=== PATIENT | male | born 1950 | race Caucasian/White ===

== ENCOUNTER 2017-10-26 06:11 | Inpatient (IN) | payer MEDICARE, OTHER ==
[2017-10-26] MEDS: SODIUM CHLOR 0.9% 1000 ML INJ 1,000 ML IV (06:28)
[2017-10-26] MEDS: DICYCLOMINE HCL 20 MG/2 ML VIAL IM (06:29)
[2017-10-26] MEDS: ONDANSETRON HCL 4 MG/2 ML VIAL IVP (06:29)
[2017-10-26] MEDS ORDERED: SODIUM CHLORIDE 0.9% FLUSH 10 ML FLUSH IV FLUSH ×3 (06:30→09:15)
[2017-10-26 07:04] LABS: AUTOMATED NEUTROPHIL # 6.4 TH/MM3 (1.8-7.7); BASOPHIL % 0.5 % (0.0-2.0); EOSINOPHIL % 0.1 % (0.0-4.0); HEMATOCRIT 46.6 % (39.0-51.0); HEMOGLOBIN 16.3 GM/DL (13.0-17.0); LYMPHOCYTE # 1.1 TH/MM3 (1.0-4.8); MEAN CELL VOLUME 90.9 FL (80.0-100.0); MEAN CORPUSCULAR HEMOGLOBIN 31.8 PG (27.0-34.0); MEAN PLATELET VOLUME 9.2 FL (7.0-11.0); MONOCYTE # 1.2 TH/MM3 (0-0.9); NEUT % 73.4 % (16.0-70.0); PLATELET COUNT 272 TH/MM3 (150-450); RED BLOOD COUNT 5.13 MIL/MM3 (4.50-5.90); RED CELL DISTRIBUTION WIDTH 14.1 % (11.6-17.2); WHITE BLOOD COUNT 8.7 TH/MM3 (4.0-11.0)
[2017-10-26 07:06] LABS: HEMO FLAGS AUTO DIFF
[2017-10-26 07:34] LABS: ALBUMIN 4.1 GM/DL (3.4-5.0); ALKALINE PHOSPHATASE 120 U/L (45-117); ALT (GPT) 30 U/L (12-78); AST (GOT) 15 U/L (15-37); BLOOD UREA NITROGEN 30 MG/DL (7-18); CALCIUM 11.1 MG/DL (8.5-10.1); CREATININE 1.48 MG/DL (0.60-1.30); GLOMERULAR FILTRATION RATE 47 ML/MIN (>89); GLUCOSE,RANDOM 274 MG/DL (74-106); TOTAL BILIRUBIN ADULT 2.2 MG/DL (0.2-1.0); TOTAL PROTEIN 8.7 GM/DL (6.4-8.2)
[2017-10-26 07:35] LABS: ANION GAP 9 MEQ/L (5-15); BICARBONATE 31.2 MEQ/L (21.0-32.0); CHLORIDE 93 MEQ/L (98-107); LIPASE 138 U/L (73-393); POTASSIUM 3.8 MEQ/L (3.5-5.1); SODIUM (NA) 133 MEQ/L (136-145)
[2017-10-26 07:38] LABS: SCAN/DIFF AUTO DIFF CONFIRMED
[2017-10-26] MEDS: SODIUM CHLORIDE 0.9% FLUSH 10 ML FLUSH IV FLUSH ×2 (09:00→20:54)
[2017-10-26] MEDS ORDERED: SENNOSIDES 8.6 MG TAB PO (09:15)
[2017-10-26] MEDS ORDERED: NALOXONE HCL 0.4 MG/ML AMP IV PUSH ×3 (09:15→17:15)
[2017-10-26] MEDS ORDERED: LACTULOSE SYRUP 20 GM/30 ML CUP PO (09:15)
[2017-10-26] MEDS ORDERED: ONDANSETRON HCL 4 MG/2 ML VIAL IVP (09:15)
[2017-10-26] MEDS ORDERED: BISACODYL 10 MG SUPP RECTAL (09:15)
[2017-10-26] MEDS ORDERED: MAGNESIUM HYDROXIDE SUSP 30 ML CUP PO (09:15)
[2017-10-26] MEDS ORDERED: GLUCAGON 1 MG/ML VIAL OTHER (09:15)
[2017-10-26] MEDS ORDERED: DEXTROSE 50% IN WATER 50 ML VIAL(D50) IV PUSH (09:15)
[2017-10-26] MEDS ORDERED: ENALAPRILAT 1.25 MG/ML VIAL IV PUSH (09:30)
[2017-10-26] MEDS ORDERED: ACETAMINOPHEN 325 MG TAB PO (09:30)
[2017-10-26] MEDS: HEPARIN SODIUM - SQ 10,000 UNITS/ML VIAL SQ (10:00)
[2017-10-26] MEDS ORDERED: ACETAMINOPHEN 1000 MG/100 ML 30 ML IV (11:00)
[2017-10-26] MEDS: HYDROmorphone HCL 2 MG TAB PO ×2 (11:22→15:58)
[2017-10-26] MEDS: D5-1/2 NS + KCL 20 MEQ INJ 1,000 ML IV ×2 (11:25→22:54)
[2017-10-26] MEDS: INSULIN ASPART SUPPLEMENTAL SCALE SQ ×3 (11:26→20:54)
[2017-10-26] MEDS: LORazepam 2 MG/ML VIAL IV PUSH (12:47)
[2017-10-26] MEDS: PANTOPRAZOLE SODIUM 40 MG VIAL IV PUSH (12:48)
[2017-10-26] MEDS ORDERED: diphenhydrAMINE HCL 50 MG/ML VIAL IV PUSH (13:00)
[2017-10-26] MEDS ORDERED: DIATRIZOATE MEGLUM/DIATRIZOATE SOD 120 ML BTL (for RAD DIAG) NG (14:23)
[2017-10-26] MEDS: ACETAMINOPHEN 1000 MG/100 ML 30 ML IV (15:59)
[2017-10-26] MEDS ORDERED: HYDROmorphone HCL PF 2 MG/ML VIAL IV PUSH (17:45)
[2017-10-26] MEDS: clonazePAM 1 MG TAB PO (18:05)
[2017-10-26 19:40] LABS: MAGNESIUM 1.7 MG/DL (1.5-2.5)
[2017-10-26] MEDS: DOCUSATE SODIUM 50 MG/SENNA 8.6 MG TAB PO (20:54)
[2017-10-26] MEDS: HYDROmorphone HCL PF 2 MG/ML VIAL IV PUSH (21:36)
[2017-10-26 22:19] LABS: HEMOGLOBIN A1C 7.9 % (4.3-6.0); HEMOGLOBIN A1a 0.9 %; HEMOGLOBIN A1b 1.2 %; HEMOGLOBIN Ao 79.6 %; HEMOGLOBIN F 1.4 %; HEMOGLOBIN LA1C 3.5 %; HEMOGLOBIN P3 5.1 %
[2017-10-26 23:58] LABS: ALBUMIN 3.8 GM/DL (3.4-5.0); ANION GAP 7 MEQ/L (5-15); AST (GOT) 11 U/L (15-37); BICARBONATE 31.2 MEQ/L (21.0-32.0); BLOOD UREA NITROGEN 30 MG/DL (7-18); CALCIUM 10.7 MG/DL (8.5-10.1); CHLORIDE 98 MEQ/L (98-107); CREATININE 1.33 MG/DL (0.60-1.30); GLOMERULAR FILTRATION RATE 54 ML/MIN (>89); GLUCOSE,RANDOM 242 MG/DL (74-106); POTASSIUM 3.9 MEQ/L (3.5-5.1); SODIUM (NA) 136 MEQ/L (136-145)
[2017-10-27] LABS: ALT (GPT) 25 U/L (12-78)
[2017-10-27 00:02] LABS: ALKALINE PHOSPHATASE 107 U/L (45-117); TOTAL BILIRUBIN ADULT 1.5 MG/DL (0.2-1.0)
[2017-10-27 07:24] LABS: AUTOMATED NEUTROPHIL # 6.3 TH/MM3 (1.8-7.7); BASOPHIL # 0.1 TH/MM3 (0-0.2); BASOPHIL % 0.7 % (0.0-2.0); EOSINOPHIL # 0.1 TH/MM3 (0-0.4); EOSINOPHIL % 0.6 % (0.0-4.0); HEMATOCRIT 50.4 % (39.0-51.0); HEMO FLAGS DIFF FINAL; HEMOGLOBIN 17.3 GM/DL (13.0-17.0); LYMPH % 15.5 % (9.0-44.0); LYMPHOCYTE # 1.4 TH/MM3 (1.0-4.8); MEAN CELL VOLUME 92.8 FL (80.0-100.0); MEAN CORPUSCULAR HEMOGLOBIN 31.8 PG (27.0-34.0); MEAN CORPUSCULAR HGB CONC 34.3 % (32.0-36.0); MEAN PLATELET VOLUME 9.1 FL (7.0-11.0); MONO % 13.3 % (0.0-8.0); MONOCYTE # 1.2 TH/MM3 (0-0.9); NEUT % 69.9 % (16.0-70.0); PLATELET COUNT 291 TH/MM3 (150-450); RED BLOOD COUNT 5.44 MIL/MM3 (4.50-5.90); RED CELL DISTRIBUTION WIDTH 14.3 % (11.6-17.2)
[2017-10-27 07:49] LABS: ANION GAP 5 MEQ/L (5-15); BICARBONATE 34.7 MEQ/L (21.0-32.0); BLOOD UREA NITROGEN 30 MG/DL (7-18); CALCIUM 10.9 MG/DL (8.5-10.1); CHLORIDE 96 MEQ/L (98-107); GLUCOSE,RANDOM 241 MG/DL (74-106); POTASSIUM 4.3 MEQ/L (3.5-5.1); SODIUM (NA) 136 MEQ/L (136-145)
[2017-10-27] MEDS: HYDROmorphone HCL PF 2 MG/ML VIAL IV PUSH (08:10)
[2017-10-27 08:29] LABS: CREATININE 1.42 MG/DL (0.60-1.30); GLOMERULAR FILTRATION RATE 50 ML/MIN (>89)
[2017-10-27] MEDS: SODIUM CHLORIDE 0.9% FLUSH 10 ML FLUSH IV FLUSH ×2 (09:00→20:09)
[2017-10-27] MEDS: DOCUSATE SODIUM 50 MG/SENNA 8.6 MG TAB PO ×2 (09:14→20:07)
[2017-10-27] MEDS: LISINOPRIL 20 MG TAB PO (09:14)
[2017-10-27] MEDS: INSULIN ASPART SUPPLEMENTAL SCALE SQ ×4 (09:14→20:07)
[2017-10-27] MEDS: LORazepam 2 MG/ML VIAL IV PUSH ×2 (09:20→23:32)
[2017-10-27] MEDS: SODIUM CHLOR 0.9% 1000 ML INJ 1,000 ML IV ×2 (10:00→17:13)
[2017-10-27] MEDS: HEPARIN SODIUM - SQ 10,000 UNITS/ML VIAL SQ (17:13)
[2017-10-27] MEDS: HYDROmorphone HCL 2 MG TAB PO (20:07)
[2017-10-27] MEDS: clonazePAM 1 MG TAB PO (20:08)
[2017-10-27] MEDS: PANTOPRAZOLE SOD 40 MG DELAYED RELEASE TAB PO (20:15)
[2017-10-28] MEDS: SODIUM CHLOR 0.9% 1000 ML INJ 1,000 ML IV ×2 (02:12→08:58)
[2017-10-28] MEDS: HEPARIN SODIUM - SQ 10,000 UNITS/ML VIAL SQ ×2 (02:13→08:51)
[2017-10-28] MEDS: HYDROmorphone HCL 2 MG TAB PO ×4 (02:15→16:24)
[2017-10-28 07:23] LABS: ANION GAP 9 MEQ/L (5-15); BICARBONATE 28.7 MEQ/L (21.0-32.0); CALCIUM 9.7 MG/DL (8.5-10.1); CHLORIDE 99 MEQ/L (98-107); CREATININE 0.88 MG/DL (0.60-1.30); GLOMERULAR FILTRATION RATE 86 ML/MIN (>89); GLUCOSE,RANDOM 163 MG/DL (74-106); POTASSIUM 3.4 MEQ/L (3.5-5.1); SODIUM (NA) 137 MEQ/L (136-145)
[2017-10-28 07:27] LABS: BLOOD UREA NITROGEN 15 MG/DL (7-18)
[2017-10-28] MEDS: INSULIN ASPART SUPPLEMENTAL SCALE SQ ×2 (08:00→11:23)
[2017-10-28] MEDS: PANTOPRAZOLE SOD 40 MG DELAYED RELEASE TAB PO (08:50)
[2017-10-28] MEDS: clonazePAM 1 MG TAB PO (08:50)
[2017-10-28] MEDS: LISINOPRIL 20 MG TAB PO (08:50)
[2017-10-28] MEDS: DOCUSATE SODIUM 50 MG/SENNA 8.6 MG TAB PO (08:51)
[2017-10-28] MEDS: SODIUM CHLORIDE 0.9% FLUSH 10 ML FLUSH IV FLUSH (08:51)
[2017-10-28] MEDS: POTASSIUM CHLORIDE 10 MEQ CAP PO (11:17)
== END 2017-10-28 16:42 | disposition home or self-care (01) | DRG 392 ==
LOC: NEPE 06:11 → NEDA 08:32 → N06B 10:31
PROC: 0D9670Z Drainage of Stomach with Drainage Device, Via Natural or Artificial Opening (ICD-10-PCS; principal; 2017-10-26)
DX: K59.09 Other constipation (principal); N17.9 Acute kidney failure, unspecified; E87.1 Hypo-osmolality and hyponatremia; I10 Essential (primary) hypertension; E11.9 Type 2 diabetes mellitus without complications; G47.30 Sleep apnea, unspecified; K58.9 Irritable bowel syndrome, unspecified; G89.29 Other chronic pain; M51.37 Other intervertebral disc degeneration, lumbosacral region; G25.81 Restless legs syndrome; K21.9 Gastro-esophageal reflux disease without esophagitis; Z86.010 Personal history of colon polyps; Z87.891 Personal history of nicotine dependence; E86.0 Dehydration; Z79.891 Long term (current) use of opiate analgesic; R63.8 Other symptoms and signs concerning food and fluid intake
CPT/HCPCS: 74019; 74176; 74250; 80048; 80053; 82948; 83036; 83690; 83735; 85025; 96361; 96372; 96374; 99285-25

== ENCOUNTER 2017-11-26 09:01 | Inpatient (IN) | payer MEDICARE ==
[~2017-11-26] VITALS: Ht 190.5 cm; Wt 129.0 kg
[~2017-11-26 09:01] MED LIST: BLOOD GLUCOSE M1 KIT; BLOOMIS; CLON1TAB PO; DICY10 PO; GLUCTES27; HYDR-3583 PO; HYOS0.1261 SL; LISI-515 PO; MIRA3350 PO; OMEP10CA PO; PERI PO; ROBA500T PO; [UNRECOGNIZED DRUG - SUPPLY]
[2017-11-26] MEDS ORDERED: IOHEXOL 350 MG/ML 10 ML VIAL (for RAD DIAG) IVCONTRAST ONE (09:02)
[2017-11-26 09:03] VITALS: BP 169/100; PULSE 134; RESP 16; TEMP 98.5; O2SAT 97
[2017-11-26 09:47] LABS: AUTOMATED NEUTROPHIL # 4.7 TH/MM3 (1.8-7.7); BASOPHIL % 0.7 % (0.0-2.0); EOSINOPHIL # 0.1 TH/MM3 (0-0.4); EOSINOPHIL % 0.9 % (0.0-4.0); HEMATOCRIT 44.7 % (39.0-51.0); HEMOGLOBIN 15.7 GM/DL (13.0-17.0); LYMPH % 16.9 % (9.0-44.0); LYMPHOCYTE # 1.1 TH/MM3 (1.0-4.8); MEAN CELL VOLUME 89.2 FL (80.0-100.0); MEAN CORPUSCULAR HEMOGLOBIN 31.2 PG (27.0-34.0); MEAN PLATELET VOLUME 8.5 FL (7.0-11.0); MONO % 10.1 % (0.0-8.0); MONOCYTE # 0.7 TH/MM3 (0-0.9); NEUT % 71.4 % (16.0-70.0); PLATELET COUNT 203 TH/MM3 (150-450); RED BLOOD COUNT 5.01 MIL/MM3 (4.50-5.90); RED CELL DISTRIBUTION WIDTH 13.4 % (11.6-17.2); WHITE BLOOD COUNT 6.5 TH/MM3 (4.0-11.0)
[2017-11-26 09:55] LABS: AST (GOT) 20 U/L (15-37); BICARBONATE 25.4 MEQ/L (21.0-32.0); BLOOD UREA NITROGEN 7 MG/DL (7-18); CALCIUM 10.9 MG/DL (8.5-10.1); CHLORIDE 102 MEQ/L (98-107); CREATININE 0.99 MG/DL (0.60-1.30); GLOMERULAR FILTRATION RATE 75 ML/MIN (>89); GLUCOSE,RANDOM 193 MG/DL (74-106); SODIUM (NA) 136 MEQ/L (136-145)
--- NOTE | 2017-11-26 09:55 | PD ---
HPI Chief Complaint: GI Complaint Time Seen by Provider: 09:43 Travel History International Travel<30 days: No Contact w/Intl Traveler<30days: No Traveled to known affect area: No History of Present Illness HPI This patient complains of abdominal pain. He has nausea. Duration is 15 hours. Severity is moderate. He feels similar to when he was admitted last month for a partial bowel obstruction that resolved spontaneously without surgery. Does have history of cholecystectomy and hernia repair. He is diabetic. He is on chronic narcotics and taking stool softener and sometimes MiraLAX. No alleviating factors. Symptoms exacerbated by constipating narcotics. He denies fever or vomiting. He had a small hard bowel movement yesterday morning PFSH Past Medical History Anxiety: No Depression: No Cancer: No Cardiovascular Problems: Yes Diabetes: Yes Patient Takes Glucophage: No Endocrine: Yes Gastrointestinal Disorders: Yes (Small bowel obsruction 10/26) GERD: Yes (takes prilosec) Genitourinary: No Hypertension: Yes Immune Disorder: No Inguinal Hernia: Yes (hx rt) Neurologic: No Psychiatric: No Reproductive: No Respiratory: Yes Sleep Apnea: Yes (CPap at HS) Tetanus Vaccination: Unknown Influenza Vaccination: Yes Social History Alcohol Use: Yes Tobacco Use: No Substance Use: No Allergies-Medications (Allergen,Severity, Reaction): Coded Allergies: diltiazem (Unverified Allergy, Mild, 11/26/17) PT. DOESN'T REMEMBER REACTION. morphine (Unverified Allergy, Mild, Itching, 11/26/17) Reported Meds & Prescriptions Reported Meds & Active Scripts Active Miralax Powder (Polyethylene Glycol 3350 Powder) 17 Gm Powd 17 Gm PO DAILY PRN Mix and dissolve one measuring cap-ful (17 grams) in water or juice. Gnp Senna Plus 8.6-50 mg (Sennosides-Docusate Sodium) 8.6 Mg-50 Mg Tab 1 Tab PO BID Hydrocodone-Acetaminophen 10-325 mg Tab 1 Tab PO TID PRN Hyoscyamine Sulfate 0.125 Mg Sub 0.125 Mg SL BID PRN Clonazepam 1 Mg Tab 1 Mg PO DIRECTED PRN 1 tab in AM and 1 1/2 tab HS prn Robaxin (Methocarbamol) 500 Mg Tab 500 Mg PO QID PRN Teto Contour Next Ez W/Device (Device) 1 Kit Kit 1 Ea .ROUTE DIRECTED Blood Glucose Monitoring W/Device (Device) 1 Kit Kit 1 Kit .ROUTE DAILY Teto Contour Next Blood Test Strips (Blood Glucose Test Strips) 1 Katie Katie 1 Strip .ROUTE DIRECTED Omeprazole 10 Mg Cap 10 Mg PO DAILY Lisinopril 20 Mg Tab 20 Mg PO DAILY [CPAP suppies] Reported Bentyl (Dicyclomine HCl) 10 Mg Cap 10 Mg PO BID PRN Review of Systems General / Constitutional: No: Fever Eyes: No: Visual changes HENT: No: Headaches Cardiovascular: No: Chest Pain or Discomfort Respiratory: No: Shortness of Breath Gastrointestinal: Positive: Nausea, Abdominal Pain, Constipation Genitourinary: No: Dysuria Musculoskeletal: No: Pain Skin: No Rash Neurologic: No: Weakness Psychiatric: No: Depression Endocrine: No: Polydipsia Hematologic/Lymphatic: No: Easy Bruising Physical Exam Narrative GENERAL: Well-nourished, well-developed patient in no apparent distress. SKIN: Focused skin assessment reveals no rash and nodules. Skin is Warm and dry. HEAD: Atraumatic. Normocephalic. EYES: Pupils equal and round. No scleral icterus. No injection or drainage. ENT: No nasal bleeding or discharge. Mucous membranes pink and moist. NECK: Trachea midline. No JVD. CARDIOVASCULAR: Regular rate and rhythm. No murmur appreciated. RESPIRATORY: No accessory muscle use. Clear to auscultation. Breath sounds equal bilaterally. GASTROINTESTINAL: Abdomen soft, non-tender, nondistended. Hepatic and splenic margins not palpable. Has prominent bowel sounds, intermittently high-pitched MUSCULOSKELETAL: No obvious deformities. No clubbing. No cyanosis. No edema. NEUROLOGICAL: Awake and alert. No obvious cranial nerve deficits. Motor grossly within normal limits. Normal speech. PSYCHIATRIC: Appropriate mood and affect; insight and judgment normal. Data Data Last Documented VS Vital Signs Date Time Temp Pulse Resp B/P (MAP) Pulse Ox O2 Delivery O2 Flow Rate FiO2 11/26/17 10:29 101 18 166/91 (116) 97 Room Air 11/26/17 09:03 98.5 Orders Orders Comprehensive Metabolic Panel (11/26/17 09:24) Complete Blood Count With Diff (11/26/17 09:24) Prothrombin Time / Inr (Pt) (11/26/17 09:50) Act Partial Throm Time (Ptt) (11/26/17 09:50) Ct Abd/Pel W Iv Contrast(Rout) (11/26/17 ) Ondansetron Inj (Zofran Inj) (11/26/17 10:00) Sodium Chlor 0.9% 1000 Ml Inj (Ns 1000 M (11/26/17 10:00) Oral Contrast - Adult (11/26/17 10:01) Diatrizoate Liq (Md Raymond Liq) (11/26/17 10:25) Iohexol 350 Inj (Omnipaque 350 Inj) (11/26/17 09:02) Labs Laboratory Tests Test 11/26/17 09:20 White Blood Count 6.5 TH/MM3 Red Blood Count 5.01 MIL/MM3 Hemoglobin 15.7 GM/DL Hematocrit 44.7 % Mean Corpuscular Volume 89.2 FL Mean Corpuscular Hemoglobin 31.2 PG Mean Corpuscular Hemoglobin Concent 35.0 % Red Cell Distribution Width 13.4 % Platelet Count 203 TH/MM3 Mean Platelet Volume 8.5 FL Neutrophils (%) (Auto) 71.4 % Lymphocytes (%) (Auto) 16.9 % Monocytes (%) (Auto) 10.1 % Eosinophils (%) (Auto) 0.9 % Basophils (%) (Auto) 0.7 % Neutrophils # (Auto) 4.7 TH/MM3 Lymphocytes # (Auto) 1.1 TH/MM3 Monocytes # (Auto) 0.7 TH/MM3 Eosinophils # (Auto) 0.1 TH/MM3 Basophils # (Auto) 0.0 TH/MM3 CBC Comment DIFF FINAL Differential Comment Prothrombin Time 10.3 SEC Prothromb Time International Ratio 1.0 RATIO Activated Partial Thromboplast Time 26.1 SEC Blood Urea Nitrogen 7 MG/DL Creatinine 0.99 MG/DL Random Glucose 193 MG/DL Total Protein 7.9 GM/DL Albumin 4.0 GM/DL Calcium Level 10.9 MG/DL Alkaline Phosphatase 127 U/L Aspartate Amino Transf (AST/SGOT) 20 U/L Alanine Aminotransferase (ALT/SGPT) 21 U/L Total Bilirubin 1.3 MG/DL Sodium Level 136 MEQ/L Potassium Level 4.0 MEQ/L Chloride Level 102 MEQ/L Carbon Dioxide Level 25.4 MEQ/L Anion Gap 9 MEQ/L Estimat Glomerular Filtration Rate 75 ML/MIN MDM Medical Decision Making Medical Screen Exam Complete: Yes Emergency Medical Condition: Yes Medical Record Reviewed: Yes Differential Diagnosis Bowel obstruction, ileus, colitis Narrative Course I have reviewed the patient's electronic medical record. Reviewed his discharge summary from last month when he was hospitalized for bowel obstruction This patient has concern for obstruction. IV is placed and I given him nausea medicine and IV fluid Has had no vomiting, holding off an NG tube at present Labs and CT ordered Abdominal CT is similar to prior showing findings consistent with a small bowel obstruction. There is proximal small bowel dilation with distal decompression. I do not think he needs emergent surgical evaluation. He has a soft fairly benign abdomen despite his symptoms and CT findings He refuses NG suction I discussed with medical residents will admit for small bowel obstruction His labs are reviewed and reasonably normal Diagnosis Primary Impression: SBO (small bowel obstruction) Additional Impression: Diabetes mellitus Qualified Codes: E11.69 - Type 2 diabetes mellitus with other specified complication Admitting Information Admitting Physician Requests: Chris Reilly MD Nov 26, 2017 09:55
[2017-11-26 09:56] LABS: ALT (GPT) 21 U/L (12-78)
[2017-11-26 09:58] LABS: ALKALINE PHOSPHATASE 127 U/L (45-117); TOTAL BILIRUBIN ADULT 1.3 MG/DL (0.2-1.0); TOTAL PROTEIN 7.9 GM/DL (6.4-8.2)
[2017-11-26] MEDS ORDERED: ONDANSETRON HCL 4 MG/2 ML VIAL IV ONE (10:00)
[2017-11-26] MEDS ORDERED: SODIUM CHLOR 0.9% 1000 ML INJ 1,000 ML IV ONE (10:00)
[2017-11-26] MEDS ORDERED: DIATRIZOATE MEGLUM/DIATRIZOATE SOD 9 ML CUP ONE (10:25)
[2017-11-26 10:29] VITALS: BP 166/91; PULSE 101; RESP 18; O2SAT 97
[2017-11-26 13:02] LABS: PROTHROMBIN TIME - PATIENT 10.3 SEC (9.8-11.6)
--- NOTE | 2017-11-26 13:02 | RADRPT ---
EXAM DATE/TIME: 11/26/2017 12:36 [facility] COMPARISON: No previous studies available for comparison. INDICATIONS : Right lower abdomen pain recent history of a small bowel obstruction. IV CONTRAST: 92 cc Omnipaque 350 (iohexol) IV ORAL CONTRAST: Prescribed oral contrast ingested. RADIATION DOSE: 17.01 CTDIvol (mGy) MEDICAL HISTORY : Hypertension. Diabetes,recent small bowel obstructio SURGICAL HISTORY : Cholecystectomy. Inguinal hernia repair. ENCOUNTER: Initial ACUITY: 1 day PAIN SCALE: 9/10 LOCATION: Right Abdomen TECHNIQUE: Volumetric scanning of the abdomen and pelvis was performed. Using automated exposure control and ad justment of the mA and/or kV according to patient size, radiation dose was kept as low as reasonably achievable to obtain optimal diagnostic quality images. DICOM format image data is available electro nically for review and comparison. FINDINGS: There is subsegmental airspace disease in the lingula or which is relatively stable since October 26. Mild fatty liver. Spleen, adrenals, kidneys and pancreas demonstrate no acute findings. Previous chol ecystectomy. There multiple dilated loops of small bowel proximally with distal decompression characteristic of a small bowel obstruction. Findings similar to October 26. No free fluid or free air. Colonic diverticula without diverticulitis. CONCLUSION: 1. Small bowel obstruction similar to October 26. No free air or free fluid. 2. Subsegmental airspace disease in the lingula similar to October 26. Caden Kitchen MD on November 26, 2017 at 12:54 Board Certified Radiologist. This report was verified electronically.
--- NOTE | 2017-11-26 14:17 | HHI.HP ---
[facility] Service Family Medicine Primary Care Physician Daniel Solorio MD Admission Diagnosis Diagnoses: International Travel<30 Days: No Contact w/Intl Traveler<30days: No Known Affected Area: No History of Present Illness This is a 67-year-old male with past medical history significant for hypertension, degenerative disc disease, spastic colon, restless leg syndrome, diabetes, GERD, and recent history of small bowel obstruction. He has small bowel obstruction 1 month ago that required hospitalization. He recalls similar symptoms that happened previously to that last episode that quickly resolved. Reports starting having the symptoms yesterday (11/25/17) at around 1600, he was at work when he started to have some abdominal pain. By 1800 yesterday with abdominal pain became very severe and he decided to stop eating and drinking at that time. He went to bed and tried to be as still as possible the hopes that he be better in the morning. In the morning he awoke still in severe pain he took a Lortab (that is used for his back pain) and it helped relieve some of his pain. Since there was no longer getting better he decided to go to the clinic where he is a patient of Dr. Solorio his symptoms to the hospital for further workup and admission. At this time he is feeling like his abdomen is distended. He denies having any fevers, but this morning he was sweating profusely. He reports feeling nauseated but denies any vomiting. He is quite happy that he has not vomited since last time he became very dehydrated from vomiting. He reports having one bowel movement yesterday morning that was solid and hard and painful to pass. The one prior to that was normal. He has not had a bowel movements today. He reports that his appetite has stopped at this time. He states that he does not wish to have an NG tube placed he was a very painful and traumatizing experience last time and he would like to avoid it. He understands that if his symptoms worsen or do not quickly improve that an NG tube may be necessary, at this time he is willing to wait. (Alex Moise MD, R3) Review of Systems Constitutional: COMPLAINS OF: Diaphoretic episodes, Chills, Change in appetite (decreased), DENIES: Fever, Weight gain, Dizziness Eyes: DENIES: Blurred vision, Eye pain, Double Vision Ears, nose, mouth, throat: DENIES: Nasal discharge, Oral lesions, Throat pain, Hoarseness, Ear Pain, Running Nose, Sinus Pain Respiratory: DENIES: Cough, Wheezing, Hemoptysis, Sputum production, Shortness of breath Cardiovascular: DENIES: Chest pain, Syncope, Orthopnea, Claudication Gastrointestinal: COMPLAINS OF: Abdominal pain, Constipation (hard on 11/25), Nausea, DENIES: Vomiting Musculoskeletal: COMPLAINS OF: Back pain, DENIES: Joint pain Integumentary: DENIES: Rash Neurologic: DENIES: Abnormal gait, Headache, Seizures Psychiatric: DENIES: Anxiety, Depression (Alex Moise MD, R3) Past Family Social History Past Medical History Hypertension Lumbosacral degenerative disc disease with chronic pain Spastic colon Restless leg syndrome -- DM -- GERD Past Surgical History Cholecystectomy 1993 colonoscopy 2010-polyps found Reported Medications Reported Meds & Active Scripts Active Miralax Powder (Polyethylene Glycol 3350 Powder) 17 Gm Powd 17 Gm PO DAILY PRN Mix and dissolve one measuring cap-ful (17 grams) in water or juice. Gnp Senna Plus 8.6-50 mg (Sennosides-Docusate Sodium) 8.6 Mg-50 Mg Tab 1 Tab PO BID Hydrocodone-Acetaminophen 10-325 mg Tab 1 Tab PO TID PRN Hyoscyamine Sulfate 0.125 Mg Sub 0.125 Mg SL BID PRN Clonazepam 1 Mg Tab 1 Mg PO DIRECTED PRN 1 tab in AM and 1 1/2 tab HS prn Robaxin (Methocarbamol) 500 Mg Tab 500 Mg PO QID PRN Teto Contour Next Ez W/Device (Device) 1 Kit Kit 1 Ea .ROUTE DIRECTED Blood Glucose Monitoring W/Device (Device) 1 Kit Kit 1 Kit .ROUTE DAILY Teto Contour Next Blood Test Strips (Blood Glucose Test Strips) 1 Katie Katie 1 Strip .ROUTE DIRECTED Omeprazole 10 Mg Cap 10 Mg PO DAILY Lisinopril 20 Mg Tab 20 Mg PO DAILY [CPAP suppies] Reported Bentyl (Dicyclomine HCl) 10 Mg Cap 10 Mg PO BID PRN (Alex Moise MD, R3) Allergies: Coded Allergies: diltiazem (Unverified Allergy, Mild, 11/26/17) PT. DOESN'T REMEMBER REACTION. morphine (Unverified Allergy, Mild, Itching, 11/26/17) Active Ordered Medications Current Medications Medications (Trade) Dose Ordered Sig/Esau Route Start Time Stop Time Status Last Admin Potassium Chloride/Dextrose/ Sod Cl 1,000 ml @ 100 mls/hr Q10H IV 11/26/17 14:23 (Dilaudid Pf Inj) 1 mg Q4H PRN IV PUSH 11/26/17 14:30 (Zofran Inj) 4 mg Q6H PRN IV PUSH 11/26/17 14:30 (Protonix Inj) 40 mg DAILY IV PUSH 11/26/17 14:30 (Heparin Inj) 5,000 units Q8H SQ 11/26/17 15:00 (D50w (Vial) Inj) 50 ml UNSCH PRN IV PUSH 11/26/17 14:30 (Glucagon Inj) 1 mg UNSCH PRN OTHER 11/26/17 14:30 (NovoLOG SUPPLEMENTAL SCALE) 1 ACHS SLIDING SCALE SQ 11/26/17 17:00 (Prinivil) 20 mg DAILY PO 11/27/17 09:00 (Robaxin) 500 mg QID PRN PO 11/26/17 14:45 (KlonoPIN) 1 mg Q12HR PO 11/26/17 21:00 Family History Father: at age 80; CHF/COPD Mother: Also at age 80; colon cancer Siblings: Sister with breast cancer, now in remission. Social History Lives alone: Tobacco: Quit smoking in 2006 Alcohol: Last drink was 1 week ago, had about 4-5 scotches in one day. Drinks every few months at this point. Use to drink daily 4-5 scotches/day stopped this use about 1-2yrs ago. No hx of DT or alcohol withdrawal. Illicit drug use: Denies, remote hx of marijuana. (Alex Moise MD, R3) Physical Exam Vital Signs Vital Signs Date Time Temp Pulse Resp B/P (MAP) Pulse Ox O2 Delivery O2 Flow Rate FiO2 11/26/17 10:29 101 18 166/91 (116) 97 Room Air 11/26/17 09:03 98.5 134 16 169/100 (123) 97 Physical Exam GENERAL: This is a well-nourished, well-developed obese male patient. Sitting up in bed in no acute distress. Frequently changing position due to feeling uncomfortable SKIN: No rashes, ecchymoses or lesions. Cool and dry. Old scar on back from melanoma removal HEAD: Atraumatic. Normocephalic. EYES: Pupils equal round and reactive. Bilateral subconjunctival hemorrhages. Extraocular motions intact. No scleral icterus. No injection or drainage. ENT: Nose without bleeding, purulent drainage. Throat without erythema, tonsillar hypertrophy or exudate. Uvula midline. Airway patent. NECK: No JVD or lymphadenopathy. Supple, nontender, no meningeal signs. CARDIOVASCULAR: Regular rate and rhythm without murmurs, gallops, or rubs. RESPIRATORY: Clear to auscultation. Breath sounds equal bilaterally. No wheezes , rales, or rhonchi. GASTROINTESTINAL: Abdomen soft, mildly distended. Decreased bowel sounds. Very mild tenderness diffusely epigastric and right side greater than left, but without rebound tenderness. No hepato-splenomegaly, or palpable masses. No guarding. MUSCULOSKELETAL: Extremities without clubbing, cyanosis, or edema. No calf tenderness. NEUROLOGICAL: Awake and alert. Motor and sensory grossly within normal limits. Five out of 5 muscle strength in all muscle groups. Normal speech. Laboratory Laboratory Tests Test 11/26/17 09:20 White Blood Count 6.5 Red Blood Count 5.01 Hemoglobin 15.7 Hematocrit 44.7 Mean Corpuscular Volume 89.2 Mean Corpuscular Hemoglobin 31.2 Mean Corpuscular Hemoglobin Concent 35.0 Red Cell Distribution Width 13.4 Platelet Count 203 Mean Platelet Volume 8.5 Neutrophils (%) (Auto) 71.4 Lymphocytes (%) (Auto) 16.9 Monocytes (%) (Auto) 10.1 Eosinophils (%) (Auto) 0.9 Basophils (%) (Auto) 0.7 Neutrophils # (Auto) 4.7 Lymphocytes # (Auto) 1.1 Monocytes # (Auto) 0.7 Eosinophils # (Auto) 0.1 Basophils # (Auto) 0.0 CBC Comment DIFF FINAL Differential Comment Prothrombin Time 10.3 Prothromb Time International Ratio 1.0 Activated Partial Thromboplast Time 26.1 Blood Urea Nitrogen 7 Creatinine 0.99 Random Glucose 193 Total Protein 7.9 Albumin 4.0 Calcium Level 10.9 Alkaline Phosphatase 127 Aspartate Amino Transf (AST/SGOT) 20 Alanine Aminotransferase (ALT/SGPT) 21 Total Bilirubin 1.3 Sodium Level 136 Potassium Level 4.0 Chloride Level 102 Carbon Dioxide Level 25.4 Anion Gap 9 Estimat Glomerular Filtration Rate 75 (Alex Moise MD, R3) Result Diagram: 11/26/1791911/26/17 0920 Imaging Last Impressions Abdomen/Pelvis CT 11/26/17 0000 Signed Impressions: Service Date/Time: November 12:36 - CONCLUSION: 1. Small bowel obstruction similar to October 26. No free air or free fluid. 2. Subsegmental airspace disease in the lingula similar to October 26. Caden Kitchen MD (Alex Moise MD, R3) Septic Shock Reassessment Septic shock perfusion: reassessment completed (Alex Moise MD, R3) Caprini VTE Risk Assessment Caprini VTE Risk Assessment: Mod/High Risk (score >= 2) Caprini Risk Assessment Model Point Value = 1 Point Value = 2 Point Value = 3 Point Value = 5 Age 41-60 Minor surgery BMI > 25 kg/m2 Swollen legs Varicose veins or History of unexplained or recurrent spontaneous Oral contraceptives or hormone replacement Sepsis (< 1 month) Serious lung disease, including pneumonia (< 1 month) Abnormal pulmonary function Acute myocardial infarction Congestive heart failure (< 1 month) History of inflammatory bowel disease Medical patient at bed rest Age 61-74 Arthroscopic surgery Major open surgery (> 45 min) Laparoscopic surgery (> 45 min) Malignancy Confined to bed (> 72 hours) Immobilizing plaster cast Central venous access Age >= 75 History of VTE Family history of VTE Factor V Leiden Prothrombin [id number] Lupus anticoagulant Anticardiolipin antibodies Elevated serum homocysteine Heparin-induced thrombocytopenia Other congenital or acquired thrombophilia Stroke (< 1 month) Elective arthroplasty Hip, pelvis, or leg fracture Acute spinal cord injury (< 1 month) Prophylaxis Regimen Total Risk Factor Score Risk Level Prophylaxis Regimen 0-1 Low Early ambulation 2 Moderate Order ONE of the following: *Sequential Compression Device (SCD) *Heparin 5000 units SQ BID 3-4 Higher Order ONE of the following medications: *Heparin 5000 units SQ TID *Enoxaparin/Lovenox 40 mg SQ daily (WT < 150 kg, CrCl > 30 mL/min) *Enoxaparin/Lovenox 30 mg SQ daily (WT < 150 kg, CrCl > 10-29 mL/min) *Enoxaparin/Lovenox 30 mg SQ BID (WT < 150 kg, CrCl > 30 mL/min) AND/OR *Sequential Compression Device (SCD) 5 or more Highest Order ONE of the following medications: *Heparin 5000 units SQ TID (Preferred with Epidurals) *Enoxaparin/Lovenox 40 mg SQ daily (WT < 150 kg, CrCl > 30 mL/min) *Enoxaparin/Lovenox 30 mg SQ daily (WT < 150 kg, CrCl > 10-29 mL/min) *Enoxaparin/Lovenox 30 mg SQ BID (WT < 150 kg, CrCl > 30 mL/min) AND *Sequential Compression Device (SCD) (Alex Moise MD, R3) Assessment and Plan Assessment and Plan This is a 67-year-old male with past medical history significant for hypertension, degenerative disc disease, spastic colon, restless leg syndrome, diabetes, GERD, and recent history of small bowel obstruction. Being admitted for small bowel obstruction. Code Status Full code Discussed Condition With SDW: Dr. Brooks WDW: Medicine Team (Alex Moise MD, R3) Attending Attestation Patient seen and examined. Case reviewed and discussed with the resident team. Agree with plan of care as discussed with me and documented in the resident note. he was seen on admission in the ED. he declines an NG tube (Annie Brooks MD) Problem List: (1) SBO (small bowel obstruction) ICD Codes: K56.609 - Unspecified intestinal obstruction, unspecified as to partial versus complete obstruction Status: Acute Plan: Patient with a history of small bowel obstruction. Having similar symptoms to previous episodes. Imaging at this time shows small bowel obstruction. * Admit inpatient * Holding NG tube placement at this time per patient's wishes. If he does not improve NG tube will be placed. * Placed on bowel regimen per protocol * NPO * Defer surgery consult at this time. * D5 one half NS plus KCl IV at 100 mL's per hour * Zofran 4 mg IV every 6 hours as needed nausea * Protonix 40 mg IV daily * Hydromorphone 1 mg IV every 6 hours as needed pain scale 1-10 (2) Diabetes mellitus ICD Codes: E11.9 - Type 2 diabetes mellitus without complications Plan: Patient with history of type 2 diabetes. Holding home medications * Blood glucose per protocol * Insulin sliding scale (3) Hypertension ICD Codes: I10 - Hypertension Status: Chronic Plan: Patient with history of hypertension. * Continue home lisinopril (4) Restless leg syndrome ICD Codes: G25.81 - Restless legs syndrome Status: Chronic Plan: Patient with history of restless leg syndrome * Continue Klonopin (5) Sleep apnea ICD Codes: G47.30 - Sleep apnea, unspecified Status: Chronic (6) Lumbosacral disc disease ICD Codes: M51.9 - Disc disorder of lumbosacral region Status: Chronic Plan: Patient with history of lumbosacral disc disease. He is on Lortabs. * Holding home medications due to n.p.o. status * IV Dilaudid as above Permanent Comment: chronic non-malignant pain Last Edited By: Daniel Solorio on Nov 21, 2016 12:25 (7) Nutrition, metabolism, and development symptoms ICD Codes: R63.8 - Other symptoms and signs concerning food and fluid intake Plan: Diet: N.p.o. Fluids: IV D5 NS at 100 mL's per hour Vitals every 4 Monitor electrolytes replace accordingly Bedrest with bathroom images GI prophylaxis: Protonix DVT prophylaxis: Heparin 5000 units every 8, SCDs CODE STATUS: Full code Disposition: Pending resolution of small bowel obstruction (Alex Moise MD, R3) Problem Qualifiers (1) Diabetes mellitus: Qualified Codes: E11.69 - Type 2 diabetes mellitus with other specified complication (2) Hypertension: Qualified Codes: I10 - Essential (primary) hypertension (3) Sleep apnea: Qualified Codes: G47.30 - Sleep apnea, unspecified Alex Moise MD, R3 Nov 26, 2017 14:17 Annie Brooks MD Nov 27, 2017 14:58
[2017-11-26] MEDS ORDERED: DEXTROSE 50% IN WATER 50 ML VIAL(D50) IV PUSH PRN (14:30)
[2017-11-26] MEDS ORDERED: GLUCAGON 1 MG/ML VIAL OTHER PRN (14:30)
[2017-11-26] MEDS ORDERED: BISACODYL 10 MG SUPP RECTAL PRN (14:45)
[2017-11-26] MEDS: DOCUSATE SODIUM 50 MG/SENNA 8.6 MG TAB PO SCH ×2 (14:45→20:02)
[2017-11-26] MEDS ORDERED: LACTULOSE SYRUP 20 GM/30 ML CUP PO PRN (14:45)
[2017-11-26] MEDS ORDERED: SENNOSIDES 8.6 MG TAB PO PRN (14:45)
[2017-11-26] MEDS: PANTOPRAZOLE SODIUM 40 MG VIAL IV PUSH SCH (15:01)
[2017-11-26] MEDS: HEPARIN SODIUM - SQ 10,000 UNITS/ML VIAL SQ SCH ×2 (15:02→23:00)
[2017-11-26] MEDS: D5-1/2 NS + KCL 20 MEQ INJ 1,000 ML IV SCH (15:02)
[2017-11-26 15:12] VITALS: BP 174/95; PULSE 97; RESP 18; O2SAT 97
[2017-11-26] MEDS: HYDROmorphone HCL PF 2 MG/ML VIAL IV PUSH PRN ×2 (15:12→20:02)
[2017-11-26] MEDS: ONDANSETRON HCL 4 MG/2 ML VIAL IV PUSH PRN ×2 (15:12→20:02)
[2017-11-26 15:59] VITALS: BP 174/85
[2017-11-26] MEDS: INSULIN ASPART SUPPLEMENTAL SCALE SQ SCH ×2 (17:23→20:14)
[2017-11-26 20:00] VITALS: BP 159/96; PULSE 99; RESP 20; TEMP 98.7; O2SAT 98
[2017-11-26] MEDS: clonazePAM 1 MG TAB PO SCH (20:02)
[2017-11-26] MEDS: METHOCARBAMOL 500 MG TAB PO PRN (20:11)
[2017-11-27] VITALS (7 sets, daily range): BP systolic 121–153; BP diastolic 74–96; PULSE 78–100; RESP 17–20; TEMP 96–98.9; O2SAT 95–100
[2017-11-27] MEDS: D5-1/2 NS + KCL 20 MEQ INJ 1,000 ML IV SCH ×3 (01:15→21:06)
[2017-11-27] MEDS: HYDROmorphone HCL PF 2 MG/ML VIAL IV PUSH PRN ×4 (02:24→21:15)
[2017-11-27] MEDS: METHOCARBAMOL 500 MG TAB PO PRN ×2 (02:28→16:09)
[2017-11-27] MEDS: ONDANSETRON HCL 4 MG/2 ML VIAL IV PUSH PRN ×2 (02:29→08:50)
[2017-11-27 04:43] LABS: BASOPHIL % 0.7 % (0.0-2.0); EOSINOPHIL % 0.5 % (0.0-4.0); HEMATOCRIT 44.3 % (39.0-51.0); HEMOGLOBIN 15.5 GM/DL (13.0-17.0); LYMPH % 14.1 % (9.0-44.0); LYMPHOCYTE # 0.8 TH/MM3 (1.0-4.8); MEAN CELL VOLUME 90.3 FL (80.0-100.0); MEAN CORPUSCULAR HEMOGLOBIN 31.7 PG (27.0-34.0); MEAN CORPUSCULAR HGB CONC 35.1 % (32.0-36.0); MEAN PLATELET VOLUME 8.8 FL (7.0-11.0); MONO % 13.5 % (0.0-8.0); MONOCYTE # 0.8 TH/MM3 (0-0.9); NEUT % 71.2 % (16.0-70.0); PLATELET COUNT 201 TH/MM3 (150-450); RED BLOOD COUNT 4.91 MIL/MM3 (4.50-5.90); RED CELL DISTRIBUTION WIDTH 13.6 % (11.6-17.2); WHITE BLOOD COUNT 5.6 TH/MM3 (4.0-11.0)
[2017-11-27 05:02] LABS: ALBUMIN 3.7 GM/DL (3.4-5.0); AST (GOT) 15 U/L (15-37); BICARBONATE 32.3 MEQ/L (21.0-32.0); BLOOD UREA NITROGEN 9 MG/DL (7-18); CALCIUM 10.5 MG/DL (8.5-10.1); CHLORIDE 101 MEQ/L (98-107); CREATININE 1.06 MG/DL (0.60-1.30); GLOMERULAR FILTRATION RATE 70 ML/MIN (>89); GLUCOSE,RANDOM 194 MG/DL (74-106); SODIUM (NA) 139 MEQ/L (136-145)
[2017-11-27 05:03] LABS: ALT (GPT) 16 U/L (12-78)
[2017-11-27 05:05] LABS: ALKALINE PHOSPHATASE 116 U/L (45-117); TOTAL BILIRUBIN ADULT 1.4 MG/DL (0.2-1.0); TOTAL PROTEIN 7.5 GM/DL (6.4-8.2)
[2017-11-27] MEDS: HEPARIN SODIUM - SQ 10,000 UNITS/ML VIAL SQ SCH ×3 (05:39→21:14)
[2017-11-27] MEDS: INSULIN ASPART SUPPLEMENTAL SCALE SQ SCH ×4 (08:32→21:00)
[2017-11-27] MEDS: LISINOPRIL 20 MG TAB PO SCH (08:33)
[2017-11-27] MEDS: clonazePAM 1 MG TAB PO SCH ×2 (08:33→21:00)
[2017-11-27] MEDS: DOCUSATE SODIUM 50 MG/SENNA 8.6 MG TAB PO SCH ×2 (08:33→21:00)
[2017-11-27] MEDS: PANTOPRAZOLE SODIUM 40 MG VIAL IV PUSH SCH (08:33)
--- NOTE | 2017-11-27 10:08 | HHI.HP ---
[facility] Service Family Medicine Primary Care Physician Daniel Solorio MD Admission Diagnosis Diagnoses: (1) SBO (small bowel obstruction) Diagnosis: Principal (2) Diabetes mellitus Diagnosis: Principal (3) Hypertension Diagnosis: Principal (4) Restless leg syndrome Diagnosis: Principal (5) Sleep apnea Diagnosis: Principal (6) Lumbosacral disc disease Diagnosis: Principal (7) Nutrition, metabolism, and development symptoms Diagnosis: Principal International Travel<30 Days: No Contact w/Intl Traveler<30days: No Known Affected Area: No History of Present Illness Mr Montague is a 67-year-old male with past medical history significant for hypertension, degenerative disc disease, spastic colon, restless leg syndrome, diabetes, GERD, and recent history of small bowel obstruction. He has small bowel obstruction 1 month ago that required hospitalization. He recalls similar symptoms that happened previously to that last episode that quickly resolved. Reports starting having the symptoms yesterday (11/25/17) at around 1600, he was at work when he started to have some abdominal pain. By 1800 his abdominal pain became very severe and he decided to stop eating and drinking at that time. He went to bed and tried to be as still as possible the hopes that he be better in the morning. In the morning he awoke still in severe pain he took a Lortab (that is used for his back pain) and it helped relieve some of his pain. Since there was no longer getting better he decided to go to the clinic where he is a patient of Dr. Solorio his symptoms to the hospital for further workup and admission. At admission he was feeling like his abdomen was distended. He denies having any fevers, but he was sweating profusely. He reports feeling nauseated but denies any vomiting. He is quite happy that he has not vomited since last time he became very dehydrated from vomiting. He reports having one bowel movement the morning before admission that was solid and hard and painful to pass. The one prior to that was normal. He has not had a bowel movements today but is now passing gas and some liquid stool of small quantity. He reports that he is thirsty at this time. He states that he does not wish to have an NG tube placed as it was a very painful and traumatizing experience last time and he would like to avoid it. He understands that if his symptoms worsen or do not quickly improve that an NG tube may be necessary. He is feeling much less abdominal pain today and was drinking ice chips. He has seen Dr Umanzor in the past and is overdue per pt for a colonoscopy. Mr Montague discussed with his medical team that he does not want an iv. We also discussed that he needs outpt follow up with GI. On calling GI, a surgical consult was recommended. It is unclear why he has his second obstruction in a month. A consult was placed to surgery today. Review of Systems Other Constitutional: COMPLAINS OF: Diaphoretic episodes, Chills, Change in appetite (decreased), DENIES: Fever, Weight gain, Dizziness Eyes: DENIES: Blurred vision, Eye pain, Double Vision Ears, nose, mouth, throat: DENIES: Nasal discharge, Oral lesions, Throat pain, Hoarseness, Ear Pain, Running Nose, Sinus Pain Respiratory: DENIES: Cough, Wheezing, Hemoptysis, Sputum production, Shortness of breath Cardiovascular: DENIES: Chest pain, Syncope, Orthopnea, Claudication Gastrointestinal: COMPLAINS OF: Abdominal pain, Constipation (hard on 11/25), Nausea, DENIES: Vomiting Musculoskeletal: COMPLAINS OF: Back pain, DENIES: Joint pain Integumentary: DENIES: Rash Neurologic: DENIES: Abnormal gait, Headache, Seizures Psychiatric: DENIES: Anxiety, Depression Past Family Social History Past Medical History Hypertension Lumbosacral degenerative disc disease with chronic pain Spastic colon Restless leg syndrome -- DM -- GERD Past Surgical History Cholecystectomy 1993 colonoscopy 2010-polyps found Reported Medications Miralax Powder (Polyethylene Glycol 3350 Powder) 17 Gm Powd 17 Gm PO DAILY PRN Mix and dissolve one measuring cap-ful (17 grams) in water or juice. Gnp Senna Plus 8.6-50 mg (Sennosides-Docusate Sodium) 8.6 Mg-50 Mg Tab 1 Tab PO BID Hydrocodone-Acetaminophen 10-325 mg Tab 1 Tab PO TID PRN Hyoscyamine Sulfate 0.125 Mg Sub 0.125 Mg SL BID PRN Clonazepam 1 Mg Tab 1 Mg PO DIRECTED PRN 1 tab in AM and 1 1/2 tab HS prn Robaxin (Methocarbamol) 500 Mg Tab 500 Mg PO QID PRN Teto Contour Next Ez W/Device (Device) 1 Kit Kit 1 Ea .ROUTE DIRECTED Blood Glucose Monitoring W/Device (Device) 1 Kit Kit 1 Kit .ROUTE DAILY Teto Contour Next Blood Test Strips (Blood Glucose Test Strips) 1 Katie Katie 1 Strip .ROUTE DIRECTED Omeprazole 10 Mg Cap 10 Mg PO DAILY Lisinopril 20 Mg Tab 20 Mg PO DAILY [CPAP suppies] Reported Bentyl (Dicyclomine HCl) 10 Mg Cap 10 Mg PO BID PRN Allergies: Coded Allergies: diltiazem (Unverified Allergy, Mild, 11/26/17) PT. DOESN'T REMEMBER REACTION. morphine (Unverified Allergy, Mild, Itching, 11/26/17) Family History Father: at age 80; CHF/COPD Mother: Also at age 80; colon cancer Siblings: Sister with breast cancer, now in remission. Social History Lives alone: Tobacco: Quit smoking in 2006 Alcohol: Last drink was 1 week ago, had about 4-5 scotches in one day. Drinks every few months at this point. Use to drink daily 4-5 scotches/day stopped this use about 1-2yrs ago. No hx of DT or alcohol withdrawal. Illicit drug use: Denies, remote hx of marijuana. works in Psychology Physical Exam Vital Signs Vital Signs Date Time Temp Pulse Resp B/P (MAP) Pulse Ox O2 Delivery O2 Flow Rate FiO2 11/27/17 09:55 97 11/27/17 09:13 18 11/27/17 08:00 96.0 78 17 146/77 (100) 97 11/27/17 00:00 98.9 95 20 141/88 (105) 97 11/26/17 20:00 98.7 99 20 159/96 (117) 98 11/26/17 15:59 98 18 174/85 (114) 99 11/26/17 15:12 97 18 174/95 (121) 97 Room Air 11/26/17 10:29 101 18 166/91 (116) 97 Room Air Physical Exam GENERAL: This is a well-nourished, well-developed obese male patient. Sitting up in bed in no acute distress. Frequently changing position due to feeling uncomfortable on the day of admission SKIN: No rashes, ecchymoses or lesions. Cool and dry. Old scar on back from melanoma removal HEAD: Atraumatic. Normocephalic. EYES: Pupils equal round and reactive. Bilateral subconjunctival hemorrhages. Extraocular motions intact. No scleral icterus. No injection or drainage. ENT: Nose without bleeding, purulent drainage. Throat without erythema, tonsillar hypertrophy or exudate. Uvula midline. Airway patent. NECK: No JVD or lymphadenopathy. Supple, nontender, no meningeal signs. CARDIOVASCULAR: Regular rate and rhythm without murmurs, gallops, or rubs. RESPIRATORY: Clear to auscultation. Breath sounds equal bilaterally. No wheezes , rales, or rhonchi. GASTROINTESTINAL: Abdomen soft, mildly distended. Decreased bowel sounds. Very mild tenderness diffusely epigastric and right side greater than left, but without rebound tenderness. No hepato-splenomegaly, or palpable masses. No guarding. today almost no pain MUSCULOSKELETAL: Extremities without clubbing, cyanosis, or edema. No calf tenderness. NEUROLOGICAL: Awake and alert. Motor and sensory grossly within normal limits. Five out of 5 muscle strength in all muscle groups. Normal speech. Laboratory Laboratory Tests Test 11/27/17 03:07 White Blood Count 5.6 Red Blood Count 4.91 Hemoglobin 15.5 Hematocrit 44.3 Mean Corpuscular Volume 90.3 Mean Corpuscular Hemoglobin 31.7 Mean Corpuscular Hemoglobin Concent 35.1 Red Cell Distribution Width 13.6 Platelet Count 201 Mean Platelet Volume 8.8 Neutrophils (%) (Auto) 71.2 Lymphocytes (%) (Auto) 14.1 Monocytes (%) (Auto) 13.5 Eosinophils (%) (Auto) 0.5 Basophils (%) (Auto) 0.7 Neutrophils # (Auto) 4.0 Lymphocytes # (Auto) 0.8 Monocytes # (Auto) 0.8 Eosinophils # (Auto) 0.0 Basophils # (Auto) 0.0 CBC Comment DIFF FINAL Differential Comment Blood Urea Nitrogen 9 Creatinine 1.06 Random Glucose 194 Total Protein 7.5 Albumin 3.7 Calcium Level 10.5 Alkaline Phosphatase 116 Aspartate Amino Transf (AST/SGOT) 15 Alanine Aminotransferase (ALT/SGPT) 16 Total Bilirubin 1.4 Sodium Level 139 Potassium Level 4.4 Chloride Level 101 Carbon Dioxide Level 32.3 Anion Gap 6 Estimat Glomerular Filtration Rate 70 Result Diagram: 11/27/17 0307 11/27/17 0307 Imaging Last Impressions Abdomen/Pelvis CT 11/26/17 0000 Signed Impressions: Service Date/Time: November 12:36 - CONCLUSION: 1. Small bowel obstruction similar to October 26. No free air or free fluid. 2. Subsegmental airspace disease in the lingula similar to October 26. MD Arlene Cruz VTE Risk Assessment Arlene VTE Risk Assessment: Mod/High Risk (score >= 2) Caprini Risk Assessment Model Point Value = 1 Point Value = 2 Point Value = 3 Point Value = 5 Age 41-60 Minor surgery BMI > 25 kg/m2 Swollen legs Varicose veins or History of unexplained or recurrent spontaneous Oral contraceptives or hormone replacement Sepsis (< 1 month) Serious lung disease, including pneumonia (< 1 month) Abnormal pulmonary function Acute myocardial infarction Congestive heart failure (< 1 month) History of inflammatory bowel disease Medical patient at bed rest Age 61-74 Arthroscopic surgery Major open surgery (> 45 min) Laparoscopic surgery (> 45 min) Malignancy Confined to bed (> 72 hours) Immobilizing plaster cast Central venous access Age >= 75 History of VTE Family history of VTE Factor V Leiden Prothrombin [id number] Lupus anticoagulant Anticardiolipin antibodies Elevated serum homocysteine Heparin-induced thrombocytopenia Other congenital or acquired thrombophilia Stroke (< 1 month) Elective arthroplasty Hip, pelvis, or leg fracture Acute spinal cord injury (< 1 month) Prophylaxis Regimen Total Risk Factor Score Risk Level Prophylaxis Regimen 0-1 Low Early ambulation 2 Moderate Order ONE of the following: *Sequential Compression Device (SCD) *Heparin 5000 units SQ BID 3-4 Higher Order ONE of the following medications: *Heparin 5000 units SQ TID *Enoxaparin/Lovenox 40 mg SQ daily (WT < 150 kg, CrCl > 30 mL/min) *Enoxaparin/Lovenox 30 mg SQ daily (WT < 150 kg, CrCl > 10-29 mL/min) *Enoxaparin/Lovenox 30 mg SQ BID (WT < 150 kg, CrCl > 30 mL/min) AND/OR *Sequential Compression Device (SCD) 5 or more Highest Order ONE of the following medications: *Heparin 5000 units SQ TID (Preferred with Epidurals) *Enoxaparin/Lovenox 40 mg SQ daily (WT < 150 kg, CrCl > 30 mL/min) *Enoxaparin/Lovenox 30 mg SQ daily (WT < 150 kg, CrCl > 10-29 mL/min) *Enoxaparin/Lovenox 30 mg SQ BID (WT < 150 kg, CrCl > 30 mL/min) AND *Sequential Compression Device (SCD) Assessment and Plan Assessment and Plan This is a 67-year-old male with past medical history significant for hypertension, degenerative disc disease, spastic colon, restless leg syndrome, diabetes, GERD, and recent history of small bowel obstruction. Being admitted for small bowel obstruction. Problem List: (1) SBO (small bowel obstruction) ICD Codes: K56.609 - Unspecified intestinal obstruction, unspecified as to partial versus complete obstruction Status: Acute Plan: Patient with a history of small bowel obstruction. Having similar symptoms to previous episodes. Imaging at this time shows small bowel obstruction. * Admit inpatient * Holding NG tube placement at this time per patient's wishes. * Placed on bowel regimen per protocol * NPO * surgery consult at this time. * D5 one half NS plus KCl IV at 100 mL's per hour * Zofran 4 mg IV every 6 hours as needed nausea * Protonix 40 mg IV daily * Hydromorphone 1 mg IV every 6 hours as needed pain scale 1-10 (2) Diabetes mellitus ICD Codes: E11.9 - Type 2 diabetes mellitus without complications Plan: Patient with history of type 2 diabetes. Holding home medications as he is not eating * Blood glucose per protocol * Insulin sliding scale (3) Hypertension ICD Codes: I10 - Hypertension Status: Chronic Plan: Patient with history of hypertension. * Continue home lisinopril (4) Restless leg syndrome ICD Codes: G25.81 - Restless legs syndrome Status: Chronic Plan: Patient with history of restless leg syndrome * Continue Klonopin (5) Sleep apnea ICD Codes: G47.30 - Sleep apnea, unspecified Status: Chronic Plan: continue with machine from home (6) Lumbosacral disc disease ICD Codes: M51.9 - Disc disorder of lumbosacral region Status: Chronic Plan: Patient with history of lumbosacral disc disease. He is on Lortabs. * Holding home medications due to n.p.o. status * IV Dilaudid as above Permanent Comment: chronic non-malignant pain Last Edited By: Daniel Solorio on Nov 21, 2016 12:25 (7) Nutrition, metabolism, and development symptoms ICD Codes: R63.8 - Other symptoms and signs concerning food and fluid intake Plan: Diet: N.p.o. Fluids: IV D5 NS at 100 mL's per hour Vitals every 4 Monitor electrolytes replace accordingly Bedrest with bathroom images GI prophylaxis: Protonix DVT prophylaxis: Heparin 5000 units every 8, SCDs CODE STATUS: Full code Disposition: Pending resolution of small bowel obstruction Problem Qualifiers (1) Diabetes mellitus: Qualified Codes: E11.69 - Type 2 diabetes mellitus with other specified complication (2) Hypertension: Qualified Codes: I10 - Essential (primary) hypertension (3) Sleep apnea: Qualified Codes: G47.30 - Sleep apnea, unspecified Annie Brooks MD Nov 27, 2017 10:08
[2017-11-27] MEDS ORDERED: HYDROmorphone HCL PF 1 MG/ML VIAL IV PUSH PRN (12:00)
[2017-11-27] MEDS: MAGNESIUM HYDROXIDE SUSP 30 ML CUP PO PRN (12:12)
[2017-11-27] MEDS ORDERED: ACETAMINOPHEN/HYDROcodone 325 MG/10 MG TAB PO PRN (13:00)
--- NOTE | 2017-11-27 15:35 | RADRPT ---
EXAM DATE/TIME: 11/27/2017 12:40 [facility] COMPARISON: SMALL BOWEL SERIES W/GASTROGRAFIN, October 26, 2017, 13:13. INDICATIONS : Abdominal pain and constipation. FLUORO TIME: 0 minutes IMAGE COUNT: 16 CONTRAST: MD Raymond IMAGING TIME(S): 15 min, 30 min, 45 min, 1 hr, 1.5 hrs MEDICAL HISTORY : Hypertension. Diabetes,recent small bowel obstructio SURGICAL HISTORY : Cholecystectomy. Inguinal hernia repair ENCOUNTER: Initial ACUITY: 1 month PAIN SCORE: 5/10 LOCATION: Bilateral lower abdomen FINDINGS: Preliminary film is unremarkable. The stomach is grossly unremarkable. The mucosal pattern of the jejunum and ileum is normal. The jejunal loops are distended, measuring up to 5.1 cm in dimension. Water-soluble contrast passes rapidly through the small bowel and contras t is seen in the colon by one hour. The terminal has a normal appearance. Comparison is made to prior small bowel series on 10/26/17; small bowel loops measure up to 6.3 cm on the prior exam. CONCLUSION: There is rapid passage of contrast into the colon by one hour excluding obstruction. There is persis tent dilated loops of jejunum however. Degree of distention of the jejunum is less than on prior sm all bowel series 10/26/17. Alex Leary MD on November 27, 2017 at 15:08 Board Certified Radiologist. This report was verified electronically.
[2017-11-27] MEDS ORDERED: DIATRIZOATE MEGLUM/DIATRIZOATE SOD 120 ML BTL (for RAD DIAG) PO ONE (17:20)
[2017-11-28 00:19] VITALS: BP 144/79; PULSE 82; RESP 20; TEMP 96.4; O2SAT 98
[2017-11-28] MEDS: METHOCARBAMOL 500 MG TAB PO PRN ×3 (00:30→16:40)
[2017-11-28] MEDS: clonazePAM 1 MG TAB PO SCH ×3 (00:31→21:23)
[2017-11-28] MEDS: ACETAMINOPHEN/HYDROcodone 325 MG/10 MG TAB PO PRN ×3 (04:42→21:25)
[2017-11-28] MEDS: HEPARIN SODIUM - SQ 10,000 UNITS/ML VIAL SQ SCH ×3 (06:34→22:42)
[2017-11-28] MEDS: D5-1/2 NS + KCL 20 MEQ INJ 1,000 ML IV SCH ×2 (06:35→16:23)
[2017-11-28] MEDS: LISINOPRIL 20 MG TAB PO SCH (07:52)
[2017-11-28] MEDS: PANTOPRAZOLE SODIUM 40 MG VIAL IV PUSH SCH (07:52)
[2017-11-28] MEDS: DOCUSATE SODIUM 50 MG/SENNA 8.6 MG TAB PO SCH ×2 (07:52→21:23)
[2017-11-28] MEDS: INSULIN ASPART SUPPLEMENTAL SCALE SQ SCH ×4 (07:53→20:15)
[2017-11-28 08:00] VITALS: BP 135/72; PULSE 72; RESP 19; TEMP 96.9; O2SAT 96
--- NOTE | 2017-11-28 08:37 | HHI.FPPN ---
Subjective Remarks Patient states he is doing better this morning. He had "3 large and good bowel movements yesterday." He has had no nausea and vomiting. Patient states he spoke with the surgeon yesterday. He denies fever, chills, chest pain, shortness of breath. (Hilario Dlay MD, R3) Objective Vitals Vital Signs Date Time Temp Pulse Resp B/P (MAP) Pulse Ox O2 Delivery O2 Flow Rate FiO2 11/28/17 00:19 96.4 82 20 144/79 (100) 98 11/27/17 20:00 97.8 87 20 139/79 (99) 98 11/27/17 17:56 95 21 11/27/17 16:36 18 11/27/17 16:00 96.5 87 17 121/74 (90) 95 11/27/17 14:35 96.5 100 17 153/96 (115) 100 11/27/17 09:55 97 11/27/17 09:13 18 I/O 11/27/17 11/27/17 11/27/17 11/28/17 11/28/17 11/28/17 07:00 15:00 23:00 07:00 15:00 23:00 Intake Total 1240 ml Balance 1240 ml Intake Oral 240 ml IV Total 1000 ml # Voids 2 10 3 # Bowel Movements 2 1 (Hilario Daly MD, R3) Result Diagram: 11/27/17 0307 11/27/17 0307 Imaging Last Impressions Small Bowel X-Ray 11/27/17 0000 Signed Impressions: Service Date/Time: Monday, November 27, 2017 12:40 - CONCLUSION: There is rapid passage of contrast into the colon by one hour excluding obstruction. There is persistent dilated loops of jejunum however. Degree of distention of the jejunum is less than on prior small bowel series 10/26/17. Alex Leary MD Abdomen/Pelvis CT 11/26/17 0000 Signed Impressions: Service Date/Time: November 12:36 - CONCLUSION: 1. Small bowel obstruction similar to October 26. No free air or free fluid. 2. Subsegmental airspace disease in the lingula similar to October 26. Caden Kitchen MD Objective Remarks GENERAL: This is a well-nourished, well-developed obese male patient. Sitting up in bed in no acute distress. SKIN: No rashes, ecchymoses or lesions. Cool and dry. Old scar on back from melanoma removal HEAD: Atraumatic. Normocephalic. EYES: Pupils equal round and reactive. Extraocular motions intact. No scleral icterus. ENT: Nose without bleeding, purulent drainage. Throat without erythema, tonsillar hypertrophy or exudate. Uvula midline. Airway patent. NECK: No JVD or lymphadenopathy. Supple, nontender, no meningeal signs. CARDIOVASCULAR: Regular rate and rhythm without murmurs, gallops, or rubs. RESPIRATORY: Clear to auscultation. Breath sounds equal bilaterally. No wheezes , rales, or rhonchi. GASTROINTESTINAL: Abdomen soft, not distended. Positive bowel sounds. Nontender to palpation. No rebound or guarding. MUSCULOSKELETAL: Extremities without clubbing, cyanosis, or edema. No calf tenderness. NEUROLOGICAL: Awake and alert. Motor and sensory grossly within normal limits. Five out of 5 muscle strength in all muscle groups. Normal speech. (Hilario Daly MD, R3) A/P Assessment and Plan This is a 67-year-old male with past medical history significant for hypertension, degenerative disc disease, spastic colon, restless leg syndrome, diabetes, GERD, and recent history of small bowel obstruction. Being admitted for small bowel obstruction. Surgery consultation Discharge Planning Pending surgery recommendations (Hilario Daly MD, R3) Attending Attestation Patient seen and examined. Case reviewed and discussed with the resident team. Agree with plan of care as discussed with me and documented in the resident note. thankfully, his small bowel follow through did not show obstruction but unclear why he had jejunal problems. appreciate help of surgery (Annie Brooks MD) Problem List: (1) SBO (small bowel obstruction) ICD Codes: K56.609 - Unspecified intestinal obstruction, unspecified as to partial versus complete obstruction Status: Acute Plan: Gen. surgery consulted * Holding NG tube placement at this time per patient's wishes. * Placed on bowel regimen per protocol * NPO * D5 one half NS plus KCl IV at 100 mL's per hour * Zofran 4 mg IV every 6 hours as needed nausea * Protonix 40 mg IV daily * Hydromorphone 1 mg IV every 6 hours as needed pain scale 6-10 (2) Diabetes mellitus ICD Codes: E11.9 - Type 2 diabetes mellitus without complications Plan: Patient with history of type 2 diabetes. Holding home medications as he is not eating * Blood glucose per protocol * Insulin sliding scale (3) Hypertension ICD Codes: I10 - Hypertension Status: Chronic Plan: Patient with history of hypertension. * Continue home lisinopril (4) Restless leg syndrome ICD Codes: G25.81 - Restless legs syndrome Status: Chronic Plan: Patient with history of restless leg syndrome * Continue Klonopin (5) Sleep apnea ICD Codes: G47.30 - Sleep apnea, unspecified Status: Chronic Plan: continue with CPAP machine from home (6) Lumbosacral disc disease ICD Codes: M51.9 - Disc disorder of lumbosacral region Status: Chronic Plan: Patient with history of lumbosacral disc disease. He is on Lortabs. * Holding home medications due to n.p.o. status * IV Dilaudid as above Permanent Comment: chronic non-malignant pain Last Edited By: Daniel Solorio on Nov 21, 2016 12:25 (7) Nutrition, metabolism, and development symptoms ICD Codes: R63.8 - Other symptoms and signs concerning food and fluid intake Plan: Diet: N.p.o. Fluids: IV D5 NS at 100 mL's per hour Vitals every 4 Monitor electrolytes replace accordingly Bedrest with bathroom images GI prophylaxis: Protonix DVT prophylaxis: Heparin 5000 units every 8, SCDs CODE STATUS: Full code Disposition: Pending resolution of small bowel obstruction and surgery recommendations (Hilario Daly MD, R3) Problem Qualifiers (1) Diabetes mellitus: Qualified Codes: E11.69 - Type 2 diabetes mellitus with other specified complication (2) Hypertension: Qualified Codes: I10 - Essential (primary) hypertension (3) Sleep apnea: Qualified Codes: G47.30 - Sleep apnea, unspecified Hilario Daly MD, R3 Nov 28, 2017 08:37 Annie Brooks MD Nov 28, 2017 13:40
[2017-11-28 08:52] LABS: AUTOMATED NEUTROPHIL # 2.9 TH/MM3 (1.8-7.7); BASOPHIL # 0.1 TH/MM3 (0-0.2); BASOPHIL % 1.2 % (0.0-2.0); EOSINOPHIL # 0.1 TH/MM3 (0-0.4); EOSINOPHIL % 2.1 % (0.0-4.0); HEMATOCRIT 36.8 % (39.0-51.0); HEMOGLOBIN 12.8 GM/DL (13.0-17.0); LYMPH % 24.5 % (9.0-44.0); LYMPHOCYTE # 1.2 TH/MM3 (1.0-4.8); MEAN CORPUSCULAR HEMOGLOBIN 31.6 PG (27.0-34.0); MEAN CORPUSCULAR HGB CONC 34.7 % (32.0-36.0); MONO % 11.6 % (0.0-8.0); MONOCYTE # 0.6 TH/MM3 (0-0.9); NEUT % 60.6 % (16.0-70.0); PLATELET COUNT 163 TH/MM3 (150-450); RED BLOOD COUNT 4.05 MIL/MM3 (4.50-5.90); RED CELL DISTRIBUTION WIDTH 13.4 % (11.6-17.2); WHITE BLOOD COUNT 4.8 TH/MM3 (4.0-11.0)
[2017-11-28 09:15] LABS: BICARBONATE 29.5 MEQ/L (21.0-32.0); CALCIUM 10.2 MG/DL (8.5-10.1); CREATININE 0.94 MG/DL (0.60-1.30)
[2017-11-28 12:00] VITALS: BP 147/83; PULSE 72; RESP 19; TEMP 97.8; O2SAT 95
[2017-11-28 16:00] VITALS: BP 129/71; PULSE 82; RESP 19; TEMP 98.4; O2SAT 97
--- NOTE | 2017-11-28 17:10 | HHI.PR ---
Subjective Subjective Notes pt comfortable states pain better pos BM passing flatus regular Objective Vitals/I&O Vital Signs Date Time Temp Pulse Resp B/P (MAP) Pulse Ox O2 Delivery O2 Flow Rate FiO2 11/28/17 16:00 98.4 82 19 129/71 (90) 97 11/27/17 17:56 21 11/26/17 15:12 Room Air Labs Laboratory Tests Test 11/27/17 17:30 11/28/17 08:02 Parathyroid Hormone (Intact) 135.4 White Blood Count 4.8 Red Blood Count 4.05 Hemoglobin 12.8 Hematocrit 36.8 Mean Corpuscular Volume 91.0 Mean Corpuscular Hemoglobin 31.6 Mean Corpuscular Hemoglobin Concent 34.7 Red Cell Distribution Width 13.4 Platelet Count 163 Mean Platelet Volume 9.0 Neutrophils (%) (Auto) 60.6 Lymphocytes (%) (Auto) 24.5 Monocytes (%) (Auto) 11.6 Eosinophils (%) (Auto) 2.1 Basophils (%) (Auto) 1.2 Neutrophils # (Auto) 2.9 Lymphocytes # (Auto) 1.2 Monocytes # (Auto) 0.6 Eosinophils # (Auto) 0.1 Basophils # (Auto) 0.1 CBC Comment DIFF FINAL Differential Comment Blood Urea Nitrogen 9 Creatinine 0.94 Random Glucose 155 Calcium Level 10.2 Sodium Level 140 Potassium Level 3.7 Chloride Level 106 Carbon Dioxide Level 29.5 Anion Gap 5 Estimat Glomerular Filtration Rate 80 Radiology Last Impressions Small Bowel X-Ray 11/27/17 0000 Signed Impressions: Service Date/Time: Monday, November 27, 2017 12:40 - CONCLUSION: There is rapid passage of contrast into the colon by one hour excluding obstruction. There is persistent dilated loops of jejunum however. Degree of distention of the jejunum is less than on prior small bowel series 10/26/17. Alex Leary MD Abdomen/Pelvis CT 11/26/17 0000 Signed Impressions: Service Date/Time: November 12:36 - CONCLUSION: 1. Small bowel obstruction similar to October 26. No free air or free fluid. 2. Subsegmental airspace disease in the lingula similar to October 26. Caden Kitchen MD Cardiovascular: Regular Lungs: Clear Abdomen: Non-distended, Non-tender, BS normal Extremities: Perfused A/P Assessment and Plan Pt with resolve ileus vs resolving PSBO start full liquid advance as cintia to regular if cintia can be d/c home Prudencio Maier MD Nov 28, 2017 17:10
--- NOTE | 2017-11-28 19:49 | MB ---
cc: ABILIO VALDERRAMA DATE OF CONSULTATION: 11/28/2017. HISTORY OF PRESENT ILLNESS: This is a 67-year-old male who presented to the emergency room with complaint of abdominal pain. The patient had associated nausea. He had similar symptoms approximately a month back where he was admitted for bowel obstruction and was thought to have a spastic colon with ileus at the time. He states he was doing well since discharge until the day prior to presentation when he began feeling pain in his back. The pain worsened and he had associated diaphoresis and as a result he presented to the emergency room. He states that last bowel movement was two days prior and he will normally go every day but has had decreased flatus. PAST MEDICAL HISTORY: His past medical history is significant for: 1. Hypertension. 2. Type 2 diabetes. 3. Gastroesophageal reflux. 4. Lumbosacral degenerative disc disease. 5. Restless leg syndrome. PAST SURGICAL HISTORY: His past surgical history is significant for: 1. Cholecystectomy. MEDICATIONS: He is on multiple medications that can be obtained from the medical record. ALLERGIES: 1. MORPHINE. 2. DILTIAZEM. SOCIAL HISTORY: He drinks occasionally. He quit smoking approximately eleven years back. FAMILY HISTORY: Family history is noncontributory. He has a family history of colon cancer in his mother. PHYSICAL EXAMINATION: GENERAL: On exam, the patient is lying down in no acute distress. HEAD, EYES, EARS, NOSE, THROAT: His pupils are equal and reactive. NECK: Trachea is midline. LUNGS: Respirations clear. CARDIOVASCULAR: Regular. GASTROINTESTINAL: Soft. Mild distention. MUSCULOSKELETAL: No deformities. NEUROLOGICAL: Nonfocal. IMAGING STUDIES: The patient had an abdominal CT with findings of dilated small bowel. ASSESSMENT: This is a patient with questionable small bowel obstruction. PLAN: The patient is currently having a small bowel series. Recommend continued NPO. Await results of small bowel series for further recommendations. MD RJ Negro/MAYRA /6:59 PM /7:35 PM [facility]ITALAlfredo
[2017-11-28 20:00] VITALS: BP 116/64; PULSE 73; RESP 20; TEMP 98.3; O2SAT 96
[2017-11-28 21:40] VITALS: O2SAT 97
[2017-11-29 00:25] VITALS: BP 123/68; PULSE 76; RESP 20; TEMP 97.9; O2SAT 95
[2017-11-29] MEDS: D5-1/2 NS + KCL 20 MEQ INJ 1,000 ML IV SCH ×2 (02:23→12:23)
[2017-11-29] MEDS: HEPARIN SODIUM - SQ 10,000 UNITS/ML VIAL SQ SCH (06:08)
[2017-11-29] MEDS: INSULIN ASPART SUPPLEMENTAL SCALE SQ SCH ×2 (07:47→12:00)
[2017-11-29 08:00] VITALS: BP 129/75; PULSE 55; RESP 19; TEMP 97.4; O2SAT 95
[2017-11-29] MEDS: LISINOPRIL 20 MG TAB PO SCH (08:16)
[2017-11-29] MEDS: PANTOPRAZOLE SODIUM 40 MG VIAL IV PUSH SCH (08:16)
[2017-11-29] MEDS: DOCUSATE SODIUM 50 MG/SENNA 8.6 MG TAB PO SCH (08:16)
[2017-11-29] MEDS: MAGNESIUM HYDROXIDE SUSP 30 ML CUP PO PRN (08:17)
[2017-11-29] MEDS: clonazePAM 1 MG TAB PO SCH (08:17)
[2017-11-29] MEDS ORDERED: POTASSIUM PHOSPHATE MONOBASIC 500 MG TAB PO ONE (09:45)
[2017-11-29] MEDS ORDERED: CHOLECALCIFEROL (VIT D3) 5000 UNIT CAP PO ONE (09:45)
--- NOTE | 2017-11-29 10:20 | HHI.FPPN ---
Subjective Remarks SHANIKA. Discussed primary hyperparathyroidism, vitamin D deficiency and hypercalcemia. Also discussed bowel regimen since he is on chronic opioid therapy as outpt as well as antispasmodics he is on as possibly contributing to his recurrent small bowel ileus. He is still a little sore in his epigastrum and RUQ but tolerating PO, ambulating, voiding, pain controlled and 3 large BMs yesterday. Ready for discharge today. (Leon Cid MD R1) Objective Vitals Vital Signs Date Time Temp Pulse Resp B/P (MAP) Pulse Ox O2 Delivery O2 Flow Rate FiO2 11/29/17 08:00 97.4 55 19 129/75 (93) 95 11/29/17 00:25 97.9 76 20 123/68 (86) 95 11/28/17 22:27 20 11/28/17 21:40 97 11/28/17 20:00 98.3 73 20 116/64 (81) 96 11/28/17 16:00 98.4 82 19 129/71 (90) 97 11/28/17 12:00 97.8 72 19 147/83 (104) 95 I/O 11/28/17 11/28/17 11/28/17 11/29/17 11/29/17 11/29/17 07:00 15:00 23:00 07:00 15:00 23:00 Intake Total 840 ml 960 ml 120 ml Output Total 800 ml Balance 840 ml 160 ml 120 ml Intake Oral 840 ml 960 ml 120 ml Output Urine Total 800 ml # Voids 3 # Bowel Movements 1 0 (Leon Cid MD R1) Result Diagram: 11/28/1780111/28/17 08 Objective Remarks GENERAL: This is a well-nourished, well-developed obese male patient. Sitting up in bed in no acute distress. SKIN: No rashes, ecchymoses or lesions. Cool and dry. Old scar on back from melanoma removal HEAD: Atraumatic. Normocephalic. EYES: Pupils equal round and reactive. Extraocular motions intact. No scleral icterus. ENT: Nose without bleeding, purulent drainage. Throat without erythema, tonsillar hypertrophy or exudate. Uvula midline. Airway patent. NECK: No JVD or lymphadenopathy. Supple, nontender, no meningeal signs. CARDIOVASCULAR: Regular rate and rhythm without murmurs, gallops, or rubs. RESPIRATORY: Clear to auscultation. Breath sounds equal bilaterally. No wheezes , rales, or rhonchi. GASTROINTESTINAL: Abdomen soft, not distended. Positive bowel sounds. Nontender to palpation. No rebound or guarding. MUSCULOSKELETAL: Extremities without clubbing, cyanosis, or edema. No calf tenderness. NEUROLOGICAL: Awake and alert. Motor and sensory grossly within normal limits. Five out of 5 muscle strength in all muscle groups. Normal speech. (Leon Cid MD R1) A/P Assessment and Plan This is a 67-year-old male with past medical history significant for hypertension, degenerative disc disease, spastic colon, restless leg syndrome, diabetes, GERD, and recent history of small bowel obstruction. Admitted for small bowel obstruction and found to have jejunal ileus on small bowel follow through. Surgery consultation. Dr Olsen signed off. PLAN: -Discharge today -F/u with endocrinology as outpt for high PTH, low Vitamin D, hypercalcemia -F/u Dr Solorio, [facility] 1 week -Diabetic education as outpt Discharge Planning Pending surgery recommendations (Leon Cid MD R1) Attending Attestation Patient seen and examined. Case reviewed and discussed with the resident team. Agree with plan of care as discussed with me and documented in the resident note. he was informed and given papers of his labs and diagnosis of hyperparathyroidism. he knows he needs to follow with Dr Solorio and see Endocrine (Annie Brooks MD) Problem List: (1) SBO (small bowel obstruction) ICD Codes: K56.609 - Unspecified intestinal obstruction, unspecified as to partial versus complete obstruction Status: Acute Plan: Gen. surgery consulted * Holding NG tube placement at this time per patient's wishes. * Placed on bowel regimen per protocol * NPO * D5 one half NS plus KCl IV at 100 mL's per hour * Zofran 4 mg IV every 6 hours as needed nausea * Protonix 40 mg IV daily * Hydromorphone 1 mg IV every 6 hours as needed pain scale 6-10 (2) Diabetes mellitus ICD Codes: E11.9 - Type 2 diabetes mellitus without complications Plan: Patient with history of type 2 diabetes. Holding home medications as he is not eating * Blood glucose per protocol * Insulin sliding scale (3) Hypertension ICD Codes: I10 - Hypertension Status: Chronic Plan: Patient with history of hypertension. * Continue home lisinopril (4) Restless leg syndrome ICD Codes: G25.81 - Restless legs syndrome Status: Chronic Plan: Patient with history of restless leg syndrome * Continue Klonopin (5) Sleep apnea ICD Codes: G47.30 - Sleep apnea, unspecified Status: Chronic Plan: continue with CPAP machine from home (6) Lumbosacral disc disease ICD Codes: M51.9 - Disc disorder of lumbosacral region Status: Chronic Plan: Patient with history of lumbosacral disc disease. He is on Lortabs. * Holding home medications due to n.p.o. status * IV Dilaudid as above Permanent Comment: chronic non-malignant pain Last Edited By: Daniel Solorio on Nov 21, 2016 12:25 (7) Nutrition, metabolism, and development symptoms ICD Codes: R63.8 - Other symptoms and signs concerning food and fluid intake Plan: Diet: N.p.o. Fluids: IV D5 NS at 100 mL's per hour Vitals every 4 Monitor electrolytes replace accordingly Bedrest with bathroom images GI prophylaxis: Protonix DVT prophylaxis: Heparin 5000 units every 8, SCDs CODE STATUS: Full code Disposition: Pending resolution of small bowel obstruction and surgery recommendations (Leon Cid MD R1) Problem Qualifiers (1) Diabetes mellitus: Qualified Codes: E11.69 - Type 2 diabetes mellitus with other specified complication (2) Hypertension: Qualified Codes: I10 - Essential (primary) hypertension (3) Sleep apnea: Qualified Codes: G47.30 - Sleep apnea, unspecified Leon Cid MD R1 Nov 29, 2017 10:20 Annie Brooks MD Nov 29, 2017 11:29
[2017-11-29] MEDS: ACETAMINOPHEN/HYDROcodone 325 MG/10 MG TAB PO PRN (10:29)
--- NOTE | 2017-11-29 11:35 | HHI.PR ---
Subjective Subjective Notes no complaint pos bm this morning Objective Vitals/I&O Vital Signs Date Time Temp Pulse Resp B/P (MAP) Pulse Ox O2 Delivery O2 Flow Rate FiO2 11/29/17 08:00 97.4 55 19 129/75 (93) 95 11/27/17 17:56 21 11/26/17 15:12 Room Air Labs Laboratory Tests Test 11/29/17 06:30 25-Hydroxy Vitamin D Total 5.4 Radiology Last Impressions Small Bowel X-Ray 11/27/17 0000 Signed Impressions: Service Date/Time: Monday, November 27, 2017 12:40 - CONCLUSION: There is rapid passage of contrast into the colon by one hour excluding obstruction. There is persistent dilated loops of jejunum however. Degree of distention of the jejunum is less than on prior small bowel series 10/26/17. Alex Leary MD Abdomen/Pelvis CT 11/26/17 0000 Signed Impressions: Service Date/Time: November 12:36 - CONCLUSION: 1. Small bowel obstruction similar to October 26. No free air or free fluid. 2. Subsegmental airspace disease in the lingula similar to October 26. Caden Kitchen MD Lungs: Clear Abdomen: Non-tender Extremities: Perfused A/P Assessment and Plan Pt with resolve ileus vs resolving PSBO Kieran diet D/C home Prudencio Maier MD Nov 29, 2017 11:35
[2017-11-29 12:00] VITALS: BP 133/79; PULSE 82; RESP 19; TEMP 97.8; O2SAT 96
--- NOTE | 2017-11-29 12:54 | HHI.DCPOC ---
Discharge Care Plan Goals to Promote Your Health * To prevent worsening of your condition and complications, please follow up with Dr Tillman (surgery) and Dr Solorio in 1 week. Please follow up with endocrinology and Dr Salcedo in 2 weeks. * To maintain your health at the optimal level, please take medications as prescribed, but add daily miralax, fiber and/or a probiotic for your bowel regimen on chronic opioid therapy. And discuss the Bentyl with your primary care doctor. Directions to Meet Your Goals Take your medications as prescribed Follow your dietary instruction Follow activity as directed Keep your appointments as scheduled Take your immunizations and boosters as scheduled If your symptoms worsen call your PCP, if no PCP go to Urgent Care Center or Emergency Room Smoking is Dangerous to Your Health. Avoid second hand smoke Call the 24-hour hour crisis hotline for domestic abuse at Leon Cid MD R1 Nov 29, 2017 12:54
--- NOTE | 2017-11-30 08:32 | HHI.DS ---
Discharge Summary Admission Date Nov 26, 2017 at 14:12 Discharge Date: Nov 29, 2017 Admitting Diagnosis small bowel obstruction (1) Ileus Diagnosis: Principal ICD Codes: K56.7 - Ileus, unspecified (2) Diabetes mellitus Diagnosis: Principal ICD Codes: E11.9 - Type 2 diabetes mellitus without complications (3) Hypertension Diagnosis: Secondary ICD Codes: I10 - Hypertension Status: Chronic (4) Restless leg syndrome Diagnosis: Secondary ICD Codes: G25.81 - Restless legs syndrome Status: Chronic (5) Sleep apnea Diagnosis: Secondary ICD Codes: G47.30 - Sleep apnea, unspecified Status: Chronic (6) Lumbosacral disc disease Diagnosis: Secondary ICD Codes: M51.9 - Disc disorder of lumbosacral region Status: Chronic (7) Nutrition, metabolism, and development symptoms Diagnosis: Secondary ICD Codes: R63.8 - Other symptoms and signs concerning food and fluid intake Consultants General surgery (Dr Olsen) Brief History Mr Montague is a 67-year-old male with past medical history significant for hypertension, degenerative disc disease, spastic colon, restless leg syndrome, diabetes, GERD, and recent history of small bowel obstruction. He has small bowel obstruction 1 month ago that required hospitalization. He recalls similar symptoms that happened previously to that last episode that quickly resolved. Reports starting having the symptoms yesterday (11/25/17) at around 1600, he was at work when he started to have some abdominal pain. By 1800 his abdominal pain became very severe and he decided to stop eating and drinking at that time. He went to bed and tried to be as still as possible the hopes that he be better in the morning. In the morning he awoke still in severe pain he took a Lortab (that is used for his back pain) and it helped relieve some of his pain. Since there was no longer getting better he decided to go to the clinic where he is a patient of Dr. Solorio his symptoms to the hospital for further workup and admission. At admission he was feeling like his abdomen was distended. He denies having any fevers, but he was sweating profusely. He reports feeling nauseated but denies any vomiting. He is quite happy that he has not vomited since last time he became very dehydrated from vomiting. He reports having one bowel movement the morning before admission that was solid and hard and painful to pass. The one prior to that was normal. He has not had a bowel movements today but is now passing gas and some liquid stool of small quantity. He reports that he is thirsty at this time. He states that he does not wish to have an NG tube placed as it was a very painful and traumatizing experience last time and he would like to avoid it. He understands that if his symptoms worsen or do not quickly improve that an NG tube may be necessary. He is feeling much less abdominal pain today and was drinking ice chips. He has seen Dr Umanzor in the past and is overdue per pt for a colonoscopy. Mr Montague discussed with his medical team that he does not want an iv. We also discussed that he needs outpt follow up with GI. On calling GI, a surgical consult was recommended. It is unclear why he has his second obstruction in a month. A consult was placed to surgery today. CBC/BMP: 11/28/17 0802 11/28/17 0802 Significant Findings Laboratory Tests Test 11/27/17 17:30 11/28/17 08:02 11/29/17 06:30 Parathyroid Hormone (Intact) 135.4 PG/ML (12.4-76.8) Red Blood Count 4.05 MIL/MM3 (4.50-5.90) Hemoglobin 12.8 GM/DL (13.0-17.0) Hematocrit 36.8 % (39.0-51.0) Monocytes (%) (Auto) 11.6 % (0.0-8.0) Random Glucose 155 MG/DL (74-106) Calcium Level 10.2 MG/DL (8.5-10.1) Estimat Glomerular Filtration Rate 80 ML/MIN (>89) 25-Hydroxy Vitamin D Total 5.4 ng/ML (30-100) Imaging Last Impressions Small Bowel X-Ray 11/27/17 0000 Signed Impressions: Service Date/Time: Monday, November 27, 2017 12:40 - CONCLUSION: There is rapid passage of contrast into the colon by one hour excluding obstruction. There is persistent dilated loops of jejunum however. Degree of distention of the jejunum is less than on prior small bowel series 10/26/17. Alex Leary MD Abdomen/Pelvis CT 11/26/17 0000 Signed Impressions: Service Date/Time: November 12:36 - CONCLUSION: 1. Small bowel obstruction similar to October 26. No free air or free fluid. 2. Subsegmental airspace disease in the lingula similar to October 26. Caden Kitchen MD PE at Discharge GENERAL: This is a well-nourished, well-developed obese male patient. Sitting up in bed in no acute distress. SKIN: No rashes, ecchymoses or lesions. Cool and dry. Old scar on back from melanoma removal HEAD: Atraumatic. Normocephalic. EYES: Pupils equal round and reactive. Extraocular motions intact. No scleral icterus. ENT: Nose without bleeding, purulent drainage. Throat without erythema, tonsillar hypertrophy or exudate. Uvula midline. Airway patent. NECK: No JVD or lymphadenopathy. Supple, nontender, no meningeal signs. CARDIOVASCULAR: Regular rate and rhythm without murmurs, gallops, or rubs. RESPIRATORY: Clear to auscultation. Breath sounds equal bilaterally. No wheezes , rales, or rhonchi. GASTROINTESTINAL: Abdomen soft, not distended. Positive bowel sounds. Nontender to palpation. No rebound or guarding. MUSCULOSKELETAL: Extremities without clubbing, cyanosis, or edema. No calf tenderness. NEUROLOGICAL: Awake and alert. Motor and sensory grossly within normal limits. Five out of 5 muscle strength in all muscle groups. Normal speech. Hospital Course Mr Montague was admitted with abdominal pain and had not had a BM for 2 days. His sxs were similar but not quite as acute as an admission in October for small bowel obstruction. Presumptive dx upon admission to the ED was again SBO. He was held NPO, an NG tube was ordered, IV dilaudid for pain control and protonix 40mg were started. Pt's lisinopril and klonopin were continued but DM medication held due to being NPO. Abdominal CT showed dilated loops of jejunum suspicious for SBO and subsegmental airspace disease in the lingula with some improvement since October 26, 2017. Pt improved clinically over the first day with improved pain score and beginning to pass some mucus by day 2. On day 2 it was found the pt had not had a f/u from his colonoscopy >5years before in which he was asked to follow up in 2 years. After discussion with Dr Salcedo, a surgery consult was ordered along with NG tube which the pt had refused on hospital day 1, and a small bowel follow through. Small bowel follow through showed normal bowel emptying with improved but still dilated loops of jejunum. Dr Olsen saw the pt and diagnosis was changed to ileus with normal bowel emptying. No surgery was contemplated with close follow-up required. Pt diet was advanced successfully without increased abdominal pain nausea or vomiting. During admission pt was found to be hypercalcemic and had not followed up colonoscopy as mentioned above and with 1st degree relative (Mother) who from colon cancer in her 80s. Further evaluation found the pt to have primary hyperparathyroisdism with PTH 135.6 and overt vitamin D deficiency at 5.4. Pt was discharged in stable condition, afebrile, with improved sxs and pt had successfully passed several BMs. Pt to follow up with endocrinology for hyperparathyroidism; Dr Tillman, surgery, for ileus; Dr Salcedo to schedule colonoscopy; and his PCP, Dr Solorio. Finally, there was concern for the pt's prescribed antispasmodic medications that could have contributed to his recurrent ileus. Pt will follow up on these with his PCP. Pt Condition on Discharge: Stable Discharge Disposition: Discharge Home Discharge Instructions DIET: Follow Instructions for: Diabetic Diet Activities you can perform: Weight Bearing as Kieran Follow up Referrals: Endocrinology Gastroenterology with Steven Salcedo MD PCP Follow-up with Daniel Solorio MD Surgical - 1 Week with Leon Tillman MD Continued Medications: Clonazepam (Clonazepam) 1 Mg Tab 1 MG PO DIRECTED PRN for ANXIETY, #90 TAB 3 Refills 1 tab in AM and 1 1/2 tab HS prn Dicyclomine (Bentyl) 10 Mg Cap 10 MG PO BID PRN for Bowel Management, CAP 0 Refills Hydrocodone-Acetaminophen (Hydrocodone-Acetaminophen) 10-325 mg Tab 1 TAB PO TID PRN for PAIN, #90 TAB 0 Refills Hyoscyamine Sulfate (Hyoscyamine Sulfate) 0.125 Mg Sub 0.125 MG SL BID PRN for stomach spasm, #60 TAB 3 Refills Lisinopril (Lisinopril) 20 Mg Tab 20 MG PO DAILY, #60 TAB 6 Refills Methocarbamol (Robaxin) 500 Mg Tab 500 MG PO QID PRN for SPASM, #60 TAB 3 Refills Omeprazole (Omeprazole) 10 Mg Cap 10 MG PO DAILY, #30 CAP 11 Refills Polyethylene Glycol 3350 Powder (Miralax Powder) 17 Gm Powd 17 GM PO DAILY PRN for CONSTIPATION, #1 CAN 0 Refills Mix and dissolve one measuring cap-ful (17 grams) in water or juice. Sennosides-Docusate Sodium (Gnp Senna Plus 8.6-50 mg) 8.6 Mg-50 Mg Tab 1 TAB PO BID, #60 TAB Leon Cid MD R1 Nov 30, 2017 08:32
== END 2017-11-29 14:06 | disposition home or self-care (01) | DRG 390 ==
LOC: NEPC 09:01 → NEDA 14:12 → N07A 16:09
PROVIDERS: ADMIT Family Medicine; ATTEND Family Medicine
DX: K56.7 Ileus, unspecified (principal); E83.52 Hypercalcemia; I10 Essential (primary) hypertension; K21.9 Gastro-esophageal reflux disease without esophagitis; G47.30 Sleep apnea, unspecified; G25.81 Restless legs syndrome; K58.9 Irritable bowel syndrome, unspecified; E11.9 Type 2 diabetes mellitus without complications; M51.37 Other intervertebral disc degeneration, lumbosacral region; G89.29 Other chronic pain; Z79.891 Long term (current) use of opiate analgesic; Z87.891 Personal history of nicotine dependence
CPT/HCPCS: 74177; 74250; 80048; 80053; 82306; 82948; 83970; 84100; 85025; 85610; 85730; 96361; 96374; C9113; J1170; J1644; J1815; J2405; J3480; J7030; Q9963; Q9967